=== PATIENT | female | born 2000 | race Caucasian/White ===

== ENCOUNTER 2020-05-20 02:12 | Emergency (ER) | payer SELFPAY ==
[~2020-05-20] VITALS: Ht 167.6 cm; Wt 46.0 kg
[2020-05-20] MEDS ORDERED: HYDROCODONE/ACETAMINOPHEN 5/325MG TABLET PO ONE (02:45)
[2020-05-20] MEDS ORDERED: ACETAMINOPHEN 325MG TABLET PO ONE (03:00)
[2020-05-20 04:12] VITALS: BP 125/75
== END 2020-05-20 04:17 | disposition home or self-care (01) ==
LOC: ER 02:12
DX: O26.891 Other specified pregnancy related conditions, first trimester (principal); S00.03XA Contusion of scalp, initial encounter; S00.83XA Contusion of other part of head, initial encounter; F41.9 Anxiety disorder, unspecified; Z3A.00 Weeks of gestation of pregnancy not specified; Y08.89XA Assault by other specified means, initial encounter; Y07.03 Male partner, perpetrator of maltreatment and neglect; Y93.89 Activity, other specified; Y92.018 Other place in single-family (private) house as the place of occurrence of the external cause
CPT/HCPCS: 71101; 73590; 81025; 99284